=== PATIENT | female | born 1985 | race Caucasian/White ===

== ENCOUNTER → 2024-06-10 | Outpatient (CLI) | payer BC, SELFPAY ==
[2024-06-10 09:46] LABS: Cardiac Risk Estimate 3.9 RATIO (3.7-5.6); Cholesterol 233 mg/dL (132-200); HDL Cholesterol 59 mg/dL (40-60); LDL Cholesterol,Calculated 157 mg/dL (0-130); Triglycerides 87 mg/dL (30-150)
[2024-06-16 06:32] LABS: Measles Antibody (IgG) >300.00 AU/mL; Rubella Antibody (IgG) 4.28 INDEX; Varicella-Zoster IgG Ab* 2.07 S/CO
== END | disposition home or self-care (01) ==
LOC: COPL 08:15
PROVIDERS: PCP Family Medicine; Referring Provider Registered Nurse; Visit Provider Registered Nurse
DX: E78.2 Mixed hyperlipidemia (principal); Z01.83 Encounter for blood typing; Z28.39 Other underimmunization status
CPT/HCPCS: 36415; 80061; 86735; 86762; 86765; 86787; 86900; 86901

== ENCOUNTER → 2024-10-15 | Outpatient (CLI) | payer BC, SELFPAY ==
[2024-10-15 09:06] LABS: Collection Type, Urine Clean Catch
[2024-10-15 09:33] LABS: Basophils % (Auto) 1 % (0-2.5); Eosinophils # (Auto) 0.2 Thou/mm3 (0.0-0.5); Eosinophils % (Auto) 4 % (0-10); Hematocrit 39.8 % (36.0-46.0); Hemoglobin 13.8 g/dL (12.0-16.0); Immature Granulocytes % (Auto) 0 % (0-0); Immature Granulocytes Auto 0.01 Thou/mm3 (0.00-0.00); Lymphocytes # (Auto) 1.6 Thou/mm3 (1.0-4.8); Lymphocytes % (Auto) 35 % (10-50); Mean Corpuscular HGB Conc 34.7 g/dl (31.0-37.0); Mean Corpuscular Hemoglobin 31.2 pg (25.0-35.0); Mean Corpuscular Volume 90 fL (80-100); Monocytes # (Auto) 0.4 Thou/mm3 (0.0-0.8); Monocytes % (Auto) 8 % (0-12); Neutrophils # (Auto) 2.5 Thou/mm3 (1.8-7.7); Neutrophils % (Auto) 53 % (37-80); Nucleated Red Blood Cell % 0 /100 WBC (0); Platelet Count 222 Thou/mm3 (140-440); RDW Standard Deviation 38.7 fL (36.4-46.3); Red Blood Count 4.43 Miln/mm3 (4.00-5.20); White Blood Count 4.7 Thou/mm3 (3.6-11.0)
[2024-10-15 09:39] LABS: Bacteria,Urine 4+; Bilirubin,Urine Negative (Negative); Blood,Urine Negative (Negative); Clarity,Urine Clear (Clear/Hazy); Color,Urine Colorless (Lt Yel-Yel); Glucose, Urine Negative (Negative); Ketones,Urine Negative (Negative); Leukocyte Esterase,Urine Negative (Negative); Nitrite,Urine Negative (Negative); Protein,Urine Negative (Neg - Trace); RBC,Urine 1 /hpf (0-3); Specific Gravity,Urine 1.005 (1.001-1.035); Squamous Epithelial Cell,Urine 7 /hpf (0-5); Urobilinogen,Urine Negative mg/dL (0.0-1.0); WBC,Urine 2 /hpf (0-5)
[2024-10-15 09:42] LABS: Glucose Estimated Average 88 mg/dL (80-131); Hemoglobin A1C 4.7 % Hgb (4.8-6.0)
[2024-10-15 09:43] LABS: Culture Indicated,Urine Yes
[2024-10-15 09:49] LABS: Iron 106 mcg/dL (50-170); Percent Iron Saturation 33 % (20-55); Total Iron Binding Capacity 319 mcg/dL (250-425); Unsaturated Iron Binding 213 (225-295)
[2024-10-15 09:55] LABS: Folate > 24.00 ng/mL (>5.38); Vitamin B12 789 pg/mL (211-911); Vitamin D 25 Hydroxy Total 34.8 ng/mL (7.3-40.2)
[2024-10-15 10:05] LABS: Alanine Aminotransferase 23 U/L (10-49); Albumin, Serum 4.7 gm/dL (3.5-5.0); Alkaline Phosphatase 65 U/L (46-116); Anion Gap 10 (7-16); Aspartate Amino Transferase 20 U/L (0-34); BUN/Creatinine Ratio 14 Ratio (12-20); Bilirubin,Total 0.7 mg/dL (0.3-1.2); Blood Urea Nitrogen 10 mg/dL (9-23); Calcium 9.8 mg/dL (8.3-10.6); Calcium (Corrected) 9.8 mg/dL (8.5-10.1); Carbon Dioxide 28.3 mMol/L (20.0-31.0); Cardiac Risk Estimate 3.1 RATIO (3.7-5.6); Chloride 102 mMol/L (98-107); Cholesterol 218 mg/dL (132-200); Creatinine (Component) 0.7 mg/dL (0.6-1.3); Free T4 (Free Thyroxine) 1.17 ng/dL (0.89-1.76); Globulin 2.3 gm/dL (2.3-3.5); Glucose 79 mg/dL (74-106); HDL Cholesterol 71 mg/dL (40-60); LDL Cholesterol,Calculated 131 mg/dL (0-130); Osmolality,Calculated 277 (275-295); Potassium 4.3 mMol/L (3.4-5.1); Sodium 140 mMol/L (136-145); Thyroid Stimulating Hormone 1.34 uIU/mL (0.55-4.78); Triglycerides 82 mg/dL (30-150); eGFR > 60 See Note
== END | disposition home or self-care (01) ==
LOC: COPL 08:01
PROVIDERS: PCP Family Medicine; Referring Provider Registered Nurse; Visit Provider Registered Nurse
DX: E78.2 Mixed hyperlipidemia (principal); R79.89 Other specified abnormal findings of blood chemistry
CPT/HCPCS: 36415; 80053; 80061; 81001; 82306; 82607; 82746; 83036; 83540; 83550; 83735; 84439; 84443; 85025; 87086

== ENCOUNTER → 2025-02-09 | Outpatient (CLI) | payer BC, SELFPAY ==
[2025-02-09 08:49] LABS: Basophils # (Auto) 0.1 Thou/mm3 (0.0-0.2); Basophils % (Auto) 1 % (0-2.5); Eosinophils # (Auto) 0.4 Thou/mm3 (0.0-0.5); Eosinophils % (Auto) 6 % (0-10); Hematocrit 38.3 % (36.0-46.0); Hemoglobin 13.6 g/dL (12.0-16.0); Immature Granulocytes Auto 0.02 Thou/mm3 (0.00-0.00); Lymphocytes # (Auto) 1.8 Thou/mm3 (1.0-4.8); Lymphocytes % (Auto) 32 % (10-50); Mean Corpuscular HGB Conc 35.5 g/dl (31.0-37.0); Mean Corpuscular Hemoglobin 32.5 pg (25.0-35.0); Mean Corpuscular Volume 92 fL (80-100); Monocytes # (Auto) 0.6 Thou/mm3 (0.0-0.8); Monocytes % (Auto) 10 % (0-12); Neutrophils # (Auto) 3.0 Thou/mm3 (1.8-7.7); Neutrophils % (Auto) 51 % (37-80); Nucleated Red Blood Cell # 0.00 Thou/mm3 (0.00-0.00); Nucleated Red Blood Cell % 0 /100 WBC (0); Platelet Count 226 Thou/mm3 (140-440); RDW Standard Deviation 39.5 fL (36.4-46.3); Red Blood Count 4.18 Miln/mm3 (4.00-5.20); White Blood Count 5.8 Thou/mm3 (3.6-11.0)
[2025-02-09 09:00] LABS: Alanine Aminotransferase 32 U/L (10-49); Albumin, Serum 4.7 gm/dL (3.5-5.0); Albumin/Globulin Ratio 2.4 (1.2-2.2); Alkaline Phosphatase 58 U/L (46-116); Anion Gap 8 (7-16); Aspartate Amino Transferase 29 U/L (0-34); BUN/Creatinine Ratio 15 Ratio (12-20); Bilirubin,Total 0.5 mg/dL (0.3-1.2); Blood Urea Nitrogen 12 mg/dL (9-23); Calcium 9.5 mg/dL (8.3-10.6); Calcium (Corrected) 9.5 mg/dL (8.5-10.1); Carbon Dioxide 29.8 mMol/L (20.0-31.0); Chloride 104 mMol/L (98-107); Creatinine (Component) 0.8 mg/dL (0.6-1.3); Globulin 2.0 gm/dL (2.3-3.5); Glucose 92 mg/dL (74-106); Osmolality,Calculated 282 (275-295); Potassium 5.1 mMol/L (3.4-5.1); Sodium 142 mMol/L (136-145); Total Protein 6.7 gm/dL (5.7-8.2); eGFR > 60 See Note
[2025-02-09 09:04] LABS: HCG Titer if Positive Negative
== END | disposition home or self-care (01) ==
LOC: COPL 07:42
PROVIDERS: PCP Family Medicine; Referring Provider Registered Nurse; Visit Provider Registered Nurse
DX: R42 Dizziness and giddiness (principal)
CPT/HCPCS: 36415; 80053; 84703; 85025

== ENCOUNTER → 2025-05-13 | Outpatient (CLI) | payer BC, SELFPAY ==
--- NOTE | 2025-05-13 11:45 | XR_ITS ---
Examination: Transvaginal ultrasound of the pelvis, complete Technique: Transvaginal sonographic images pelvis performed using panchal scale imaging Exam date and time: May 13, 2025, 1140 hours INDICATIONS: Diagnosis endometriosis, pelvic pressure irregular heavy menses 5 years FINDINGS: Uterus 7.8 cm fundal vascular area of fibroid degeneration 18 x 17 x 19 mm Endometrial stripe is thickened and vascular 15 mm Right ovary 3.9 cm arterial flow solid mass 17 x 9 x 18 mm Left ovary 3.4 cm arterial flow, 13 mm cyst with internal echoes IMPRESSION: Uterine area fibroid degeneration 18 x 17 x 19 mm Thickened vascular endometrial stripe 15 mm, recommend 3-month follow-up transvaginal pelvic sonography Right ovarian solid mass consistent with early right ovarian tumor, 17 x 9 x 18 mm, recommend MRI pelvis follow-up pre and postcontrast
== END | disposition home or self-care (01) ==
LOC: CDIM 11:25
PROVIDERS: PCP Registered Nurse; Referring Provider Obstetrics & Gynecology; Visit Provider Obstetrics & Gynecology
DX: D25.9 Leiomyoma of uterus, unspecified (principal); R93.89 Abnormal findings on diagnostic imaging of other specified body structures
CPT/HCPCS: 76830

== ENCOUNTER → 2025-05-27 | Outpatient (CLI) | payer BC, SELFPAY ==
[2025-05-27 08:40] LABS: HCG Qualitative,Urine Negative
[2025-05-27 09:06] LABS: Anion Gap 8 (7-16); Blood Urea Nitrogen 9 mg/dL (9-23); Carbon Dioxide 30.0 mMol/L (20.0-31.0); Chloride 102 mMol/L (98-107); Creatinine (Component) 0.8 mg/dL (0.6-1.3); Potassium 4.9 mMol/L (3.4-5.1); Sodium 140 mMol/L (136-145)
[2025-05-27 09:07] LABS: Alanine Aminotransferase 29 U/L (10-49); Albumin, Serum 5.0 gm/dL (3.5-5.0); Albumin/Globulin Ratio 2.6 (1.2-2.2); Alkaline Phosphatase 70 U/L (46-116); Aspartate Amino Transferase 28 U/L (0-34); BUN/Creatinine Ratio 11 Ratio (12-20); Bilirubin,Total 0.6 mg/dL (0.3-1.2); Calcium 9.8 mg/dL (8.3-10.6); Calcium (Corrected) 9.8 mg/dL (8.5-10.1); Globulin 1.9 gm/dL (2.3-3.5); Glucose 83 mg/dL (74-106); Osmolality,Calculated 277 (275-295); Total Protein 6.9 gm/dL (5.7-8.2); eGFR > 60 See Note
== END | disposition home or self-care (01) ==
LOC: COPL 07:07
PROVIDERS: PCP Family Medicine; Referring Provider Registered Nurse; Visit Provider Registered Nurse
DX: N83.291 Other ovarian cyst, right side (principal); Z32.00 Encounter for pregnancy test, result unknown
CPT/HCPCS: 36415; 80053; 81025

== ENCOUNTER → 2025-05-28 | Outpatient (CLI) | payer BC, SELFPAY ==
--- NOTE | 2025-05-28 15:00 | XR_ITS ---
Examination: MRI pelvis with intravenous contrast. MRI pelvis without intravenous contrast. Date and time of exam: May 28, 2025, 1443 hours INDICATIONS: Pelvic pain heavy vaginal bleeding and cramping for last 2 months, 18 x 17 x 19 mm vascular uterine fundal mass, endometrial stripe thickened and vascular 50 mm on pelvic sonogram May 13, 2025 Technique: Multiple axial, sagittal and coronal sections of the pelvis obtained. Transverse images, TR 6020, TE 107. T1 weighted transverse images, TR 582, TE 9.5. T2-weighted sagittal images, TR 4000, TE 105. T2-weighted sagittal images, TR 4000, TE 5. Coronal images, TR 4210, TE 107. Axial and coronal images are obtained post 15 cc intravenous injection, gadolinium. Findings: Anteverted uterus, 8 x 3.5 x 4.0 cm Endometrial stripe 12 mm without enhancing masses Uterine fundal nonenhancing mass is noted, 15 mm Right ovary 3.5 x 2.8 cm 16 mm cyst Solid right ovarian mass is not depicted Left ovary 3.0 x 2.8 cm 9 mm follicular cyst IMPRESSION: Uterine fundal nonenhancing mass 15 mm likely fibroid degeneration No solid right ovarian mass is identified Small bilateral ovarian follicular cysts Recommend repeat transvaginal pelvic sonography in 3 months
== END | disposition home or self-care (01) ==
LOC: SMRI 06-02 07:58
PROVIDERS: PCP Registered Nurse; Referring Provider Registered Nurse; Visit Provider Registered Nurse
DX: N83.291 Other ovarian cyst, right side (principal)
CPT/HCPCS: 72197; A9577